=== PATIENT | female | born 1950 | race Caucasian/White ===

== ENCOUNTER 2023-05-26 14:28 | Emergency (ER) | payer MEDICARE ==
[~2023-05-26] VITALS: Ht 147.3 cm; Wt 59.0 kg
[2023-05-26] MEDS ORDERED: IBUPROFEN 600 MG TABLET ONE (14:56)
[2023-05-26] MEDS ORDERED: IBUPROFEN 600 MG TABLET PO ONE (15:00)
[2023-05-26 17:18] VITALS: BP 132/81; TEMP 98.1; O2SAT 98
== END 2023-05-26 17:18 | disposition home or self-care (01) ==
LOC: ER 14:50
DX: M25.562 Pain in left knee (principal); I10 Essential (primary) hypertension; Z96.642 Presence of left artificial hip joint; W01.0XXA Fall on same level from slipping, tripping and stumbling without subsequent striking against object, initial encounter; Y93.89 Activity, other specified; Y92.89 Other specified places as the place of occurrence of the external cause; Y99.8 Other external cause status
CPT/HCPCS: 73564-TC